=== PATIENT | female | born 1945 | race Caucasian/White ===

== ENCOUNTER 2017-06-19 17:02 | Emergency (ER) | payer OTHER ==
[~2017-06-19] VITALS: Ht 152.4 cm; Wt 77.1 kg
--- NOTE | ~2017-06-19 | EKG ---
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
[~2017-06-19 17:02] MED LIST: ACETAMINOPHEN650 M5 OR; ALLERGY RELIEF25 M2 OR; ASA5UEC OR; ASTELIN30 ML NS; COLACE100 MG OR; COSOPT EYE DROPS5 ML OP; K-DUR 20 MEQ T20 MEQ OR; LIPITOR80 MG OR; LUMIGAN2.5 ML OP; MAALOX SUSPENS148 ML; NORVASC 2.5 MG2.5 M1 OR; ZYRTEC 10 MG TA10 MG OR; [UNRECOGNIZED DRUG - OTHER] OR
[2017-06-19 17:30] LABS: ABSOLUTE NEUTROPHILS 3.8 thou/uL (1.4-8.2); EOSINOPHILS 1.3 % (0.0-3.0); HEMATOCRIT 35.4 % (37.0-47.0); HEMOGLOBIN 11.5 gm/dL (12.0-15.0); LYMPHOCYTES 25.2 % (24.0-44.0); MCH 27.5 pg (26.0-34.0); MCHC 32.6 g/dL (28.0-37.0); MCV 84.3 fL (80.0-100.0); MONOCYTES 8.5 % (1.0-8.0); PLATELET COUNT 314 thou/uL (150-400); WBC 5.9 thou/uL (4.0-11.0)
[2017-06-19 17:31] LABS: MANUAL DIFF NO
[2017-06-19 17:35] LABS: ANION GAP 13 mmol/L (7-16); BUN 16 mg/dL (7-18); CALCIUM 10.2 mg/dL (8.5-10.1); CHLORIDE 98 mmol/L (98-107); CO2 24 mmol/L (21-32); CREATININE 1.1 mg/dL (0.6-1.0); GLUCOSE 124 mg/dL (74-106); POTASSIUM 3.6 mmol/L (3.5-5.1); SODIUM 135 mmol/L (136-145)
[2017-06-19 17:40] LABS: ALBUMIN 3.7 g/dL (3.4-5.0); ALKALINE PHOSPHATASE 90 U/L (46-116); DIRECT BILIRUBIN < 0.1 mg/dL (<0.1-0.3); SGOT 25 U/L (15-37); SGPT 16 U/L (30-65); TOTAL BILIRUBIN 0.2 mg/dL (<0.1-1.0)
[2017-06-19] MEDS ORDERED: TRAVATAN Z2.5 ML OPHTHALMIC (17:41)
[2017-06-19] MEDS ORDERED: TRAMADOL 50 MG50 MG PO (17:42)
[2017-06-19] MEDS ORDERED: LISINOPRIL10 MG PO (17:42)
[2017-06-19] MEDS ORDERED: CALCIUM 600 +1 EAC1 PO (17:42)
[2017-06-19 17:43] LABS: TROPONIN-I < 0.04 ng/mL (<0.06)
[2017-06-19] MEDS ORDERED: HYDROCHLOROTH12.5 M1 PO (17:43)
[2017-06-19] MEDS ORDERED: MOBIC15 MG PO (17:43)
[2017-06-19] MEDS ORDERED: CARAFATE 1 GM TA1 GM PO (18:10)
[2017-06-19] MEDS ORDERED: OMEPRAZOLE 20 M20 MG PO (18:10)
[2017-06-19 18:31] VITALS: BP 132/85
== END 2017-06-19 18:32 | disposition home or self-care (01) ==
LOC: ER 17:02
PROVIDERS: Emergency Medicine; Physician Assistant
DX: K21.0 Gastro-esophageal reflux disease with esophagitis (principal); I10 Essential (primary) hypertension; Z88.1 Allergy status to other antibiotic agents; Z88.2 Allergy status to sulfonamides; Z88.8 Allergy status to other drugs, medicaments and biological substances